=== PATIENT | male | born 2000 | race Caucasian/White ===

== ENCOUNTER 2021-07-25 18:07 | Emergency (ER) | payer OTHER ==
[~2021-07-25] VITALS: Ht 188 cm; Wt 95.5 kg
[2021-07-25 18:56] VITALS: BP 143/83
[2021-07-25] MEDS ORDERED: AMOX-100 PO (19:14)
[2021-07-25] MEDS ORDERED: ibuprofen tablet 400 MG TABLET PO ONE (19:15)
[2021-07-25] MEDS ORDERED: amoxicillin 250mg capsule PO ONE (19:15)
== END 2021-07-25 19:44 | disposition home or self-care (01) ==
LOC: ER 18:08
DX: K08.89 Other specified disorders of teeth and supporting structures (principal)
CPT/HCPCS: 99283